=== PATIENT | male | born 2000 | race African-American/Black ===

== ENCOUNTER 2021-12-07 11:52 | Emergency (ER) | payer BC, SELFPAY ==
[2021-12-07 12:05] VITALS: BP 118/74; PULSE 57; RESP 16; TEMP 37.1; O2SAT 100
[2021-12-07 12:12] VITALS: BP 118/74; PULSE 57; RESP 16; TEMP 37.1; O2SAT 100
--- NOTE | 2021-12-07 12:19 | ED.EAR ---
HPI - Ear Problem General Chief complaint: Ear Stated complaint: ear pain Time Seen by Provider: 12/07/21 12:19 Source: patient Mode of arrival: ambulatory Limitations: no limitations History of Present Illness HPI Narrative: 21-year-old male presented for complaint of pain to the right ear for one week. Endorses fullness and muffled sounds, feels like there is water in the ear. He has used hydrogen peroxide, essential oils, hydrogen peroxide and other [id number] remedies to help remove earwax. He denies tinnitus, dizziness, severe pain, fevers or chills. Complaint: ear pain Related Data Allergies Allergy/AdvReac Type Severity Reaction Status Date / Time No Known Allergies Allergy Verified 12/07/21 11:55 Review of Systems Review of Systems: CONSTITUTIONAL: Denies malaise, chills, or fever. EYES: Denies visual changes, redness, or discharge. ENT: Denies rhinorrhea, congestion, sinus pain, and sore throat. Reports ear pain CARDIOVASCULAR: Denies chest pain, palpitations, or edema. RESPIRATORY: Denies cough or dyspnea. SKIN: Denies rash or itching. MUSCULOSKELETAL: Denies myalgia. NEUROLOGIC: Denies headache. All systems reviewed & are unremarkable except as noted in HPI and below PMFSH Comments At time of signature, agree with nursing past medical, surgical, social and family history. There is no relevant family history pertinent to the presenting complaint Exam Narrative: GENERAL: Well-appearing, well-nourished, and in no acute distress. EYES: conjunctivae clear ENT: Nares clear. Mucous membranes moist. Right canal swelling with purulent drainage, TM appears intact, dull light reflex. Left TM pearly sanchez with normal light reflex. Oropharynx not erythematous without lesions. NECK: Supple. No lymphadenopathy CHEST: Clear to auscultation, breath sounds equal. HEART: Regular rate and rhythm. No murmur heard. SKIN: Warm, dry, no rash. NEURO: Alert and oriented x3. PSYCH: Normal mood and affect Course Course Emergency Course: Patient is aware of diagnosis, understands and agrees to treatment plan. Anticipatory guidance given. Patient agrees to follow-up as directed and is aware of reasons to seek care at the emergency department. Portions of this record may have been created with voice recognition software Level of Care: Express Care Visit Vital Signs Vital signs: Vital Signs Temperature 98.8 F 06/19/22 12:05 Pulse Rate 57 L 12/07/21 12:05 Respiratory Rate 16 12/07/21 12:05 Blood Pressure 118/74 12/07/21 12:05 Pulse Oximetry 100 12/07/21 12:05 Oxygen Delivery Room Air 12/07/21 12:05 Temperature 98.8 F 12/07/21 12:12 Pulse Rate 57 L 12/07/21 12:12 Respiratory Rate 16 12/07/21 12:12 Blood Pressure 118/74 12/07/21 12:12 Pulse Oximetry 100 12/07/21 12:12 Oxygen Delivery Room Air 12/07/21 12:12 Reviewed Medical Decision Making MDM Narrative Medical decision making narrative: PE c/w otitis externa, advised on abx drops and s/s to return. patient is non-toxic appearing and is in no distress. Patient is appropriate for outpatient treatment and follow-up. Differential Diagnosis Differential Diagnosis: allergic rhinitis, upper respiratory tract infection, sinusitis, rhinosinusitis, nasopharyngitis, viral pharyngitis, otitis media, otitis externa, eustachian tube dysfunction, foreign body, cerumen impaction. Vital Signs Vital Signs: Vital Signs Temperature 98.8 F 12/07/21 12:05 Pulse Rate 57 L 12/07/21 12:05 Respiratory Rate 16 12/07/21 12:05 Blood Pressure 118/74 12/07/21 12:05 Pulse Oximetry 100 12/07/21 12:05 Oxygen Delivery Room Air 12/07/21 12:05 Temperature 98.8 F 12/07/21 12:12 Pulse Rate 57 L 12/07/21 12:12 Respiratory Rate 16 12/07/21 12:12 Blood Pressure 118/74 12/07/21 12:12 Pulse Oximetry 100 12/07/21 12:12 Oxygen Delivery Room Air 12/07/21 12:12 Discharge Plan Discharge Clinical Impression
== END 2021-12-07 12:34 | disposition home or self-care (01) ==
PROVIDERS: Emergency Provider Nurse Practitioner Family
DX: H60.501 Unspecified acute noninfective otitis externa, right ear (principal)
CPT/HCPCS: 99203; G0463

== ENCOUNTER 2021-12-10 11:13 | Emergency (ER) | payer BC, SELFPAY ==
[2021-12-10 11:31] VITALS: BP 97/70; PULSE 110; RESP 16; TEMP 36.7; O2SAT 99
--- NOTE | 2021-12-10 12:03 | ED.EAR ---
HPI - Ear Problem General Chief complaint: Ear Stated complaint: EAR PAIN Time Seen by Provider: 12/10/21 12:03 Source: patient Mode of arrival: ambulatory Limitations: no limitations History of Present Illness HPI Narrative: 21-year-old male presented for complaint of swelling to the right ear since yesterday. He was seen on 12/07 dx with otitis externa, started the neomycin drops as directed, but states it slowly started closing and could not instill the ear drops today. Denies increased pain or drainage, headache, n/v/d/f/c. Continues with increased sinus congestion. MD Complaint: ear pain Related Data Allergies Allergy/AdvReac Type Severity Reaction Status Date / Time No Known Allergies Allergy Verified 12/07/21 11:55 Review of Systems Review of Systems: CONSTITUTIONAL: Denies malaise, chills, or fever. EYES: Denies visual changes, redness, or discharge. ENT: Reports rhinorrhea, congestion, ear swelling CARDIOVASCULAR: Denies chest pain, palpitations, or edema. RESPIRATORY: Denies cough or dyspnea. SKIN: Denies rash or itching. NEUROLOGIC: Denies headache. All systems reviewed & are unremarkable except as noted in HPI and below PMFSH Comments At time of signature, agree with nursing past medical, surgical, social and family history. There is no relevant family history pertinent to the presenting complaint Exam Narrative: GENERAL: Well-appearing EYES: conjunctivae clear ENT: Sinus congestion noted. Mucous membranes moist. Right TM stenotic, scant yellow drainage noted, tender with palpation, unable to insert otoscope or visualize TM; Left TM pearly sanchez with normal light reflex. Oropharynx not erythematous without lesions. No facial swelling or preauricular swelling NECK: No lymphadenopathy CHEST: Clear to auscultation, breath sounds equal. No wheezing, rhonchi, rales, or stridor. No respiratory distress, speaks in full sentences. HEART: Regular rate and rhythm. No murmur heard. SKIN: Warm, dry, no rash. NEURO: Alert and oriented x3. Course Course Emergency Course: Patient is aware of diagnosis, understands and agrees to treatment plan. Anticipatory guidance given. Patient agrees to follow-up as directed and is aware of reasons to seek care at the emergency department. Portions of this record may have been created with voice recognition software Level of Care: Express Care Visit Vital Signs Vital signs: Vital Signs Temperature 98.0 F 12/10/21 11:31 Pulse Rate 110 H 12/10/21 11:31 Respiratory Rate 16 12/10/21 11:31 Blood Pressure 97/70 L 12/10/21 11:31 Pulse Oximetry 99 12/10/21 11:31 Oxygen Delivery Room Air 12/10/21 11:31 Temperature 98.0 F 12/10/21 11:31 Pulse Rate 110 H 12/10/21 11:31 Respiratory Rate 16 12/10/21 11:31 Blood Pressure 97/70 L 12/10/21 11:31 Pulse Oximetry 99 12/10/21 11:31 Oxygen Delivery Room Air 12/10/21 11:31 Reviewed Procedures Other Procedure Procedure 1: Other Procedure: Ear wick inserted to right ear per RN prescribed neomycin drops given. Medical Decision Making MDM Narrative Medical decision making narrative: We discussed the importance of close follow up, monitoring symptoms and supportive measures. Advised he may need ENT f/u if no improvement. He will stop Cortisporin gtts and start Steroid and Ciprodex drops using wick. States he is going to [place] tomorrow, reinforced no submerging in water. patient is non-toxic appearing and is in no distress. Patient is appropriate for outpatient treatment and follow-up. Differential Diagnosis Differential Diagnosis: allergic rhinitis, upper respiratory tract infection, sinusitis, rhinosinusitis, nasopharyngitis, viral pharyngitis, otitis media, otitis externa, eustachian tube dysfunction, foreign body, cerumen impaction. Vital Signs Vital Signs: Vital Signs Temperature 98.0 F 12/10/21 11:31 Pulse Rate 110 H 12/10/21 11:31 Respiratory Rate 16 12/10/21 11:31 Blood Press
== END 2021-12-10 12:30 | disposition home or self-care (01) ==
PROVIDERS: Emergency Provider Nurse Practitioner Family
DX: H60.501 Unspecified acute noninfective otitis externa, right ear (principal)
CPT/HCPCS: 99213; G0463

== ENCOUNTER 2023-11-09 14:52 | Emergency (ER) | payer BC, SELFPAY ==
[2023-11-09 15:16] VITALS: BP 147/80; PULSE 68; RESP 16; TEMP 36.6; O2SAT 99
--- NOTE | 2023-11-09 15:19 | ED.EAR ---
HPI - Ear Problem General Chief complaint: Ear Stated complaint: right ear issue Time Seen by Provider: 11/09/23 15:23 Source: patient, RN notes reviewed and old records reviewed Mode of arrival: ambulatory Limitations: no limitations History of Present Illness HPI Narrative: 23-year-old male presents to the [facility] with ear discomfort, right ear issue. Has a cyst-like structure at the opening of the right ear canal. Having left ear discomfort. Has been using Q-tips. Related Data Allergies Allergy/AdvReac Type Severity Reaction Status Date / Time No Known Allergies Allergy Verified 11/09/23 14:59 Review of Systems Review of Systems: All systems reviewed & are unremarkable except as noted in HPI and below Constitutional: Constitutional: Reports no additional constitutional complaints Eyes: Eyes: Reports no additional eye complaints ENT: Reports as per HPI Cardiovascular: Cardiovascular: Reports no additional cardiovascular complaints, Denies chest pain and Denies dyspnea Respiratory: Respiratory: Reports no additional respiratory complaints, Denies chest congestion, Denies cough and Denies dyspnea Gastrointestinal: Gastrointestinal: Reports no additional gastrointestinal complaints, Denies abdominal pain, Denies nausea and Denies vomiting Musculoskeletal: Musculoskeletal: Reports no additional musculoskeletal complaints Integumentary/Breasts: Skin/Breast: Reports system reviewed and no additional complaints, except as docu Neurologic: Reports system reviewed and no additional complaints, except as documented Psychiatric: Psychiatric: Reports no additional psychiatric complaints Allergic/Immunologic: Allergic/Immunologic: Reports no additional allergic/immunologic complaints PMFSH Comments At the time of my signature, I reviewed and agree with the nursing past medical, surgical, social, and family history. There is no relevant family history pertinent to the patient complaint. Exam Const: General: cooperative, healthy appearing, comfortable, no acute distress, well developed, alert and well nourished Nutritional Appearance: well nourished Orientation/consciousness: patient oriented x3 Limitations: no limitations HENMT: Head: normal to inspection Ears: hearing grossly normal bilaterally, external ears normal and Abnormal EAC present erythema, edema on the left (With erythema and small abrasions), EAC tenderness bilateral and other (Cyst-like structure right ear) Face/Nose/Sinus: Normal external nose present, Normal nares present, Normal nasal mucous membranes and turbinates present, normal facial exam and face symmetric Face and sinus: normal facial exam and face symmetric Other: Cyst-like structure to the opening of the right ear cleaned with surgical soap and saline. Attempted to do a needle aspiration to the area. Unsuccessful, firm but no fluid. Most likely cystic in nature Eyes: General: appearance normal, both eyes and all related structures Alignment and Position: alignment normal Periorbital: periorbital findings normal Pupils: Equal, round and reactive pupils present EOM: EOMs intact bilaterally Neck: Neck: normal visual inspection, full ROM, no lymphadenopathy and no meningeal signs Chest: Chest palpation & inspection: normal inspection of the chest Resp: Effort & Inspection: normal respiratory effort and able to speak in complete sentences Auscultation: clear to auscultation bilaterally, no crackles, no rales, no rhonchi and no wheezes Cardio: Rate: regular rate Rhythm: regular rhythm Skin: General skin exam: normal color and no rashes or lesions noted Lesions: no lesions Rashes: no rashes Trauma: no lacerations or abrasions Wounds: no wounds Neuro: General: patient oriented x3, gait normal, tone normal, moves all extremities and no meningeal signs Cranial nerves: Yes Equal, round and reactive pupils present Cognition (Neuro): normal cognition Speech: normal speech Gait exam (Neur
[2023-11-09 15:21] VITALS: BP 147/80; PULSE 68; RESP 16; TEMP 36.6; O2SAT 99
== END 2023-11-09 15:57 | disposition home or self-care (01) ==
PROVIDERS: Emergency Provider Nurse Practitioner
DX: S00.412A Abrasion of left ear, initial encounter (principal); X58.XXXA Exposure to other specified factors, initial encounter; Q18.1 Preauricular sinus and cyst
CPT/HCPCS: 99213; G0463